=== PATIENT | male | born 1970 | race African-American/Black ===

== ENCOUNTER 2018-08-25 11:35 | Emergency (ER) | payer OTHER ==
[~2018-08-25] VITALS: Ht 180.3 cm; Wt 80.7 kg
[2018-08-25] MEDS ORDERED: BACTRIM DS TAB1 EACH PO (13:17)
[2018-08-25 13:20] VITALS: BP 121/74
== END 2018-08-25 13:20 | disposition home or self-care (01) ==
LOC: M.ERS 11:35
DX: R51 Headache (principal)